=== PATIENT | male | born 1950 | race Caucasian/White ===

== ENCOUNTER 2020-03-30 10:26 | Emergency (ER) | payer MEDICARE, SELFPAY ==
--- NOTE | 2020-03-30 10:37 | ED.GENADULT ---
HPI - General Adult General Chief complaint: Ear Stated complaint: Ear ache Time Seen by Provider: 03/30/20 10:47 Source: patient Mode of arrival: ambulatory Limitations: no limitations History of Present Illness HPI narrative: 69-year-old male patient presents to the [facility] with complaints of pain to the left ear and slightly decreased hearing. Patient states he feels like it is clogged. Patient states he does use Q-tips. Denies any fevers, cough or sore throat. Related Data Home Medications Medication Instructions Recorded Confirmed amlodipine-olmesartan 1 tablet PO DAILY 03/30/20 03/30/20 clonidine HCl 0.1 mg PO DAILY 03/30/20 03/30/20 hydrochlorothiazide 25 mg PO DAILY 03/30/20 03/30/20 metformin 500 mg PO DAILY 03/30/20 03/30/20 sertraline 50 mg PO DAILY 03/30/20 03/30/20 simvastatin 20 mg PO DAILY 03/30/20 03/30/20 sitagliptin 100 mg PO DAILY 03/30/20 03/30/20 Allergies Allergy/AdvReac Type Severity Reaction Status Date / Time No Known Allergies Allergy Verified 03/30/20 10:51 Review of Systems Review of Systems: Narrative: CONSTITUTIONAL: Denies fever, chills, or sweats. EYES: Denies visual changes, redness, or discharge. ENT: Denies rhinorrhea, congestion, sore throat, positive left otalgia. CARDIOVASCULAR: Denies chest pain, palpitations, or edema. RESPIRATORY: Denies cough or dyspnea. GASTROINTESTINAL: Denies abdominal pain, nausea, vomiting, or diarrhea. GENITOURINARY: Denies dysuria or hematuria. SKIN: Denies rash or itching. MUSCULOSKELETAL: Denies back pain, joint pain, or myalgia. NEUROLOGIC: Denies headache, numbness, or weakness. PSYCHIATRIC: Denies anxiety or depression. [facility] Past Medical History Medical History (Updated 03/30/20 @ 11:01 by EDWARDO Mendes) Diabetes Hypertension Surgical History Surgical History (Updated 03/30/20 @ 10:38 by EDWARDO Mendes) History of appendectomy History of orthopedic surgery Right ankle repair Comments At the time of my signature I agree with nursing past medical history, surgical, social, and family history. There is no relevant family history pertinent to the presenting complaint. Exam Narrative: Exam Narrative: GENERAL: Well-appearing, well-nourished, and in no acute distress. HEAD: Normocephalic, atraumatic. EYES: PERRLA and EOMI. ENT: Nares clear, no rhinorrhea or epistaxis. Mucous membranes moist. Unable to visualize the TM on the left due to cerumen impaction. There is also a little bit of cerumen noted to the canal of the right ear but it is not impacted and able to visualize some of the TM. Posterior pharynx with no erythema, tonsil enlargement, exudates or lesions present. NECK: Supple. No lymphadenopathy CHEST: Clear to auscultation. No respiratory distress. HEART: Regular rate and rhythm. No murmur heard. Normal peripheral pulses. ABDOMEN: Soft, nontender, nondistended, normal active bowel sounds. EXTREMITIES: Normal range of motion. No edema. SKIN: Warm, dry, no rash. NEURO: No focal deficits. Alert and oriented x3. Course Vital Signs Vital signs: Vital Signs Temperature 37.1 C 03/30/20 10:45 Pulse Rate 83 03/30/20 10:45 Respiratory Rate 18 03/30/20 10:45 Blood Pressure 128/67 03/30/20 10:45 Pulse Oximetry 99 03/30/20 10:45 Temperature 37.1 C 03/30/20 10:45 Pulse Rate 83 03/30/20 10:45 Respiratory Rate 18 03/30/20 10:45 Blood Pressure 128/67 03/30/20 10:45 Pulse Oximetry 99 03/30/20 10:45 Vital signs reviewed. Procedures Ear Wax Removal Left Ear: Ear Wax Removal Date: 03/30/20 Ear Wax Removal Time: 10:53 Cerumenolytic Used: 5-10% Sodium Bicarb solution Results: Re-examined: cerumen removed completely TM Examination: TM(s) intact, normal appearance Ear Canal Exam: atraumatic Patient Tolerated Procedure: well Complications: no problems Technique: ear canal irrigated and ear canal curetted Additional C
[2020-03-30 10:45] VITALS: BP 128/67; PULSE 83; RESP 18; TEMP 37.1; O2SAT 99
== END 2020-03-30 11:05 | disposition home or self-care (01) ==
PROVIDERS: Emergency Provider Nurse Practitioner Family
DX: H61.22 Impacted cerumen, left ear (principal); E11.9 Type 2 diabetes mellitus without complications; I10 Essential (primary) hypertension; Z79.84 Long term (current) use of oral hypoglycemic drugs
CPT/HCPCS: 69210; 99202; G0463

== ENCOUNTER 2021-11-27 09:01 | Emergency (ER) | payer MEDICARE, SELFPAY ==
--- NOTE | 2021-11-27 09:05 | ED.EAR ---
HPI - Ear Problem General Chief complaint: Ear Stated complaint: Ears Time Seen by Provider: 11/27/21 09:05 Source: patient and RN notes reviewed History of Present Illness HPI Narrative: Patient is a 71-year-old male who presents the urgent care with complaints of right earwax impaction. Patient states that he purchased a [employer] cat and was trying to flush the ear out last night. States that symptoms started 2 days ago. Currently denies of any pain. No other acute complaints. No acute distress noted. Patient aware of the plan of care. Some parts of this dictation were generated by voice recognition software and may contain typographical and/or grammatical inaccuracies. Related Data Home Medications Medication Instructions Recorded Confirmed amlodipine-olmesartan 1 tablet PO DAILY 03/30/20 11/27/21 aspirin 81 mg PO DAILY 03/30/20 11/27/21 clonidine HCl 0.1 mg PO DAILY 03/30/20 11/27/21 hydrochlorothiazide 25 mg PO DAILY 03/30/20 11/27/21 metformin 500 mg PO DAILY 03/30/20 11/27/21 [id number]-ysumw acid 1 tablet PO DAILY 03/30/20 11/27/21 [Centrum] sertraline 50 mg PO DAILY 03/30/20 11/27/21 simvastatin 20 mg PO DAILY 03/30/20 11/27/21 sitagliptin 100 mg PO DAILY 03/30/20 11/27/21 Allergies Allergy/AdvReac Type Severity Reaction Status Date / Time No Known Allergies Allergy Verified 11/27/21 09:10 Review of Systems Review of Systems: CONSTITUTIONAL: Denies fever, chills, or sweats. EYES: Denies visual changes, redness, or discharge. ENT: Denies rhinorrhea, congestion, sore throat. Reports of right otalgia CARDIOVASCULAR: Denies chest pain, palpitations, or edema. RESPIRATORY: Denies cough or dyspnea. GASTROINTESTINAL: Denies abdominal pain, nausea, vomiting, or diarrhea. GENITOURINARY: Denies dysuria or hematuria. SKIN: Denies rash or itching. MUSCULOSKELETAL: Denies back pain, joint pain, or myalgia. NEUROLOGIC: Denies headache, numbness, or weakness. All other systems reviewed are negative, except as documented in HPI. [facility] Past Medical History Medical History (Updated 11/27/21 @ 10:00 by EDWARDO Otero) Diabetes Hypertension Surgical History Surgical History (Updated 03/30/20 @ 10:38 by EDWARDO Mendes) History of appendectomy History of orthopedic surgery Right ankle repair Comments At the time of my signature, I reviewed and agree with the nursing past medical, surgical, social, and family history. There is no relevant family history pertinent to the patient complaint. Exam Narrative: GENERAL: This is a well-nourished, well-developed patient, in no apparent distress. HEAD: normocephalic, atraumatic. EYES: PERRL. Sclera clear/white. Vision is grossly intact. EARS: External ears normal, auditory canals clear and without drainage, unable to visualize bilateral TMs due to cerumen impaction. Hearing grossly intact. NOSE: External nose normal with no obvious nasal discharge, nares without redness, no rhinorrhea. THROAT: Mucous membranes moist NECK: Neck supple SKIN: warm, intact with no suspicious lesions or rash, good texture and turgor. NEURO: awake, alert, and oriented to person, place and time. There were no obvious focal neurologic abnormalities. EXTREMITIES: No clubbing, cyanosis, or edema. Course Course Level of Care: Express Care Visit Vital Signs Vital signs: Vital Signs Temperature 97 F L 11/27/21 09:07 Pulse Rate 81 11/27/21 09:07 Respiratory Rate 20 11/27/21 09:07 Blood Pressure 155/87 H 11/27/21 09:07 Pulse Oximetry 95 11/27/21 09:07 Temperature 97 F L 11/27/21 09:13 Pulse Rate 81 11/27/21 09:13 Respiratory Rate 20 11/27/21 09:13 Blood Pressure 155/87 H 11/27/21 09:13 Pulse Oximetry 95 11/27/21 09:13 Reviewed-patient is informed that they may have pre-hypertension or hypertension based on a blood pressure reading in the department. I recommend the patient call the primary care provider listed on their discharge ins
[2021-11-27 09:07] VITALS: BP 155/87; PULSE 81; RESP 20; TEMP 36.1; O2SAT 95
[2021-11-27 09:13] VITALS: BP 155/87; PULSE 81; RESP 20; TEMP 36.1; O2SAT 95
== END 2021-11-27 10:06 | disposition home or self-care (01) ==
PROVIDERS: Emergency Provider Nurse Practitioner Family; PCP Internal Medicine
DX: H61.23 Impacted cerumen, bilateral (principal); E11.9 Type 2 diabetes mellitus without complications; I10 Essential (primary) hypertension; Z79.82 Long term (current) use of aspirin
CPT/HCPCS: 69210; 99213; G0463